=== PATIENT | male | born 1950 | race Caucasian/White ===

== ENCOUNTER 2016-07-06 15:48 | Emergency (ER) | payer BC ==
[2016-09-07] MEDS ORDERED: HYDROCHLOROTHIA25 MG PO (08:19)
[2016-09-07] MEDS ORDERED: ZANTAC150 MG PO (08:19)
[2016-09-07] MEDS ORDERED: COZAAR100 MG PO (08:19)
[2016-09-07] MEDS ORDERED: IBUPROFEN400 MG PO (08:20)
== END 2016-07-06 17:18 | disposition home or self-care (01) ==
LOC: ER1 15:48
DX: S61.210A Laceration without foreign body of right index finger without damage to nail, initial encounter (principal); I10 Essential (primary) hypertension; Z88.0 Allergy status to penicillin; Z23 Encounter for immunization; Z87.891 Personal history of nicotine dependence; W26.0XXA Contact with knife, initial encounter; Y92.009 Unspecified place in unspecified non-institutional (private) residence as the place of occurrence of the external cause
CPT/HCPCS: 12001; 90471; 90715; 99283

== ENCOUNTER → 2016-09-07 | Day surgery (SDC) | payer BC ==
[~2016-09-07] MED LIST: COZAAR100 MG PO; HYDROCHLOROTHIA25 MG PO; IBUPROFEN400 MG PO; ZANTAC150 MG PO
== END | disposition home or self-care (01) ==
LOC: OR 06:55
PROVIDERS: Surgery
PROC: 0DB38ZZ Excision of Lower Esophagus, Via Natural or Artificial Opening Endoscopic (ICD-10-PCS; 2016-09-07)
PROC: 0DB68ZX Excision of Stomach, Via Natural or Artificial Opening Endoscopic, Diagnostic (ICD-10-PCS; principal; 2016-09-07 08:00)
DX: K29.00 Acute gastritis without bleeding (principal); K29.50 Unspecified chronic gastritis without bleeding; K44.9 Diaphragmatic hernia without obstruction or gangrene; E78.5 Hyperlipidemia, unspecified; I10 Essential (primary) hypertension; K21.9 Gastro-esophageal reflux disease without esophagitis; M19.90 Unspecified osteoarthritis, unspecified site; Z88.1 Allergy status to other antibiotic agents; Z85.828 Personal history of other malignant neoplasm of skin
CPT/HCPCS: J7120

== ENCOUNTER 2020-07-12 18:29 | Emergency (ER) | payer BC, OTHER ==
[~2020-07-12 18:29] MED LIST changes: +ECOTRIN81 MG PO; +IMDUR ER TAB 3030 MG PO; +LOPRESSOR 25 MG25 MG PO; +VITAMIN D; +VITAMIN D350000 UNIT PO
[2020-07-12 20:56] LABS: HEMOGLOBIN 15.4 gm/dl (14.0-17.5); RED BLOOD COUNT 5.02 M/UL (4.20-5.50); WHITE BLOOD COUNT 10.3 K/UL (4.5-11.0)
[2020-07-12 21:13] LABS: BUN/CREATININE RATIO 25 (0-10)
== END 2020-07-12 22:00 | disposition home or self-care (01) ==
LOC: ER1 18:29
PROVIDERS: Family Medicine
DX: M54.2 Cervicalgia (principal); I10 Essential (primary) hypertension; Z79.01 Long term (current) use of anticoagulants; Z79.899 Other long term (current) drug therapy; Z88.0 Allergy status to penicillin
CPT/HCPCS: 80053; 82550; 82553; 83874; 84439; 84443; 84484; 85025; 93005; 99284

== ENCOUNTER → 2020-07-20 | Outpatient (CLI) | payer BC, OTHER | LOC: EXRD 08:41 | DX: I83.90 Asymptomatic varicose veins of unspecified lower extremity (principal) | CPT/HCPCS: 93971 ==

== ENCOUNTER → 2020-11-02 | Outpatient (CLI) | payer BC ==
[~2020-11-02] MED LIST changes: +CEPHALEXIN500 M1 PO
== END ==
LOC: HEART 5 10-29 13:30
DX: R00.0 Tachycardia, unspecified (principal)

== ENCOUNTER 2021-01-09 16:51 | Emergency (ER) | payer BC ==
[~2021-01-09 16:51] MED LIST changes: -CEPHALEXIN500 M1 PO
[2021-01-09] MEDS ORDERED: CEPHALEXIN500 M1 PO (17:37)
== END 2021-01-09 17:40 | disposition home or self-care (01) ==
LOC: ER1 16:51
DX: T23.201A Burn of second degree of right hand, unspecified site, initial encounter (principal); T31.0 Burns involving less than 10% of body surface; I10 Essential (primary) hypertension; Z88.8 Allergy status to other drugs, medicaments and biological substances
CPT/HCPCS: 99283

== ENCOUNTER → 2021-01-13 | Outpatient (CLI) | payer BC ==
[~2021-01-13] MED LIST changes: +CEPHALEXIN500 M1 PO
== END ==
LOC: HEART 5 13:07
DX: R00.2 Palpitations (principal)

== ENCOUNTER → 2021-03-24 | Outpatient (CLI) | payer BC ==
[2021-03-24 12:22] LABS: HEMOGLOBIN 14.8 gm/dl (14.0-17.5); RED BLOOD COUNT 4.84 M/UL (4.20-5.50); WHITE BLOOD COUNT 7.5 K/UL (4.5-11.0)
[2021-03-24 13:37] LABS: BUN/CREATININE RATIO 17 (0-10)
== END ==
LOC: LAB 11:55
PROVIDERS: Internal Medicine Cardiovascular Disease
DX: I42.9 Cardiomyopathy, unspecified (principal); I10 Essential (primary) hypertension; R00.2 Palpitations; I47.2 Ventricular tachycardia
CPT/HCPCS: 36415; 71046; 80048; 80061; 80076; 84439; 84443; 84481; 85025

== ENCOUNTER 2021-03-30 07:37 | Outpatient (CLI) | payer BC ==
[~2021-03-30] VITALS: Ht 175.3 cm; Wt 96.7 kg
[2021-03-30] MEDS ORDERED: CATAPRES 0.1MG0.1 MG PO (08:45)
[2021-03-30] MEDS ORDERED: ASPIRIN325 MG PO (08:45)
[2021-03-30] MEDS ORDERED: IBU400 MG PO (08:46)
[2021-03-30] MEDS ORDERED: LEVOFLOXACIN500 MG PO (14:35)
[2021-03-30] MEDS ORDERED: HYDROCODON-ACE1 EAC4 PO (14:35)
== END 2021-03-31 15:11 | disposition home or self-care (01) ==
LOC: CATH 07:37 → PROG CARE 15:20 → CATH 03-31 15:11
DX: I47.2 Ventricular tachycardia (principal); I49.5 Sick sinus syndrome; I42.8 Other cardiomyopathies; I10 Essential (primary) hypertension; Z88.8 Allergy status to other drugs, medicaments and biological substances; Z20.822 Contact with and (suspected) exposure to COVID-19
CPT/HCPCS: 71045; C1721; C1730; C1766; C1777; C1898; J1644; J2250; J2270; J3010; J3370; J7040; J7070; U0002

== ENCOUNTER → 2021-06-08 | Outpatient (CLI) | payer BC ==
[~2021-06-08] MED LIST changes: +ASPIRIN325 MG PO; +CATAPRES 0.1MG0.1 MG PO; +HYDROCODON-ACE1 EAC4 PO; +IBU400 MG PO; +LEVOFLOXACIN500 MG PO
== END ==
LOC: HEART 5 10:00
DX: I47.1 Supraventricular tachycardia (principal); I42.9 Cardiomyopathy, unspecified; R53.83 Other fatigue; R00.2 Palpitations; I10 Essential (primary) hypertension; I07.1 Rheumatic tricuspid insufficiency
CPT/HCPCS: 93306

== ENCOUNTER → 2021-07-16 | Outpatient (CLI) | payer MEDICARE ==
[~2021-07-16] MED LIST changes: +ASPIRIN81 MG PO; +CYCLOBENZAPRINE5 MG PO; +ELIQUIS5 MG PO; +IBU800 MG PO; +LOSARTAN POTASS50 MG PO; +METOPROLOL TART50 MG PO; +VOLTAREN ARTHRI20 GM TP
[2021-07-16 10:46] LABS: HEMOGLOBIN 12.7 gm/dl (14.0-17.5); RED BLOOD COUNT 4.25 M/UL (4.20-5.50); WHITE BLOOD COUNT 8.6 K/UL (4.5-11.0)
[2021-07-16 11:09] LABS: BUN/CREATININE RATIO 29 (0-10)
== END ==
LOC: OPSV2 09:30
PROVIDERS: Orthopaedic Surgery
DX: Z01.818 Encounter for other preprocedural examination (principal); S76.112A Strain of left quadriceps muscle, fascia and tendon, initial encounter
CPT/HCPCS: 80048; 83036; 85025; 93005

== ENCOUNTER → 2021-07-16 | Outpatient (CLI) | payer BC | LOC: KOH-I 07-06 15:00 | DX: Z87.891 Personal history of nicotine dependence (principal) | CPT/HCPCS: 71271 ==

== ENCOUNTER 2021-07-20 09:11 | Inpatient (IN) | payer MEDICARE ==
[~2021-07-20] VITALS: Ht 175.3 cm; Wt 102.1 kg
[2021-07-20 11:35] LABS: HEMOGLOBIN 13.2 gm/dl (14.0-17.5); RED BLOOD COUNT 4.45 M/UL (4.20-5.50); WHITE BLOOD COUNT 9.4 K/UL (4.5-11.0)
[2021-07-20 12:06] LABS: BUN/CREATININE RATIO 18 (0-10)
[2021-07-22 05:08] LABS: BUN/CREATININE RATIO 14 (0-10)
[2021-07-23 04:44] LABS: RED BLOOD COUNT 4.07 M/UL (4.20-5.50); WHITE BLOOD COUNT 8.2 K/UL (4.5-11.0)
[2021-07-23 05:01] LABS: BUN/CREATININE RATIO 18 (0-10)
[2021-07-25 04:42] LABS: BUN/CREATININE RATIO 22 (0-10)
[2021-07-27 04:58] LABS: BUN/CREATININE RATIO 18 (0-10)
[2021-07-29 03:41] LABS: HEMOGLOBIN 12.4 gm/dl (14.0-17.5); RED BLOOD COUNT 4.17 M/UL (4.20-5.50); WHITE BLOOD COUNT 11.2 K/UL (4.5-11.0)
[2021-07-29 05:52] LABS: BUN/CREATININE RATIO 17 (0-10)
[2021-07-30] MEDS ORDERED: VALIUM 5 MG TAB5 MG PO (09:49)
[2021-07-30] MEDS ORDERED: HYDROCODON-ACE1 EAC4 PO (09:49)
[2021-07-30 11:12] LABS: HEMOGLOBIN 13.3 gm/dl (14.0-17.5); RED BLOOD COUNT 4.54 M/UL (4.20-5.50); WHITE BLOOD COUNT 8.9 K/UL (4.5-11.0)
[2021-07-30 11:35] LABS: BUN/CREATININE RATIO 18 (0-10)
[2021-07-31 07:26] LABS: HEMOGLOBIN 12.5 gm/dl (14.0-17.5); RED BLOOD COUNT 4.33 M/UL (4.20-5.50); WHITE BLOOD COUNT 8.6 K/UL (4.5-11.0)
[2021-07-31 07:53] LABS: BUN/CREATININE RATIO 17 (0-10)
[2021-08-01 05:58] LABS: HEMOGLOBIN 13.1 gm/dl (14.0-17.5); RED BLOOD COUNT 4.46 M/UL (4.20-5.50); WHITE BLOOD COUNT 7.8 K/UL (4.5-11.0)
[2021-08-01 06:20] LABS: BUN/CREATININE RATIO 19 (0-10)
--- NOTE | 2021-08-02 09:02 | NUR ---
patient condition reported and order received from dr. wang white hat hacker
--- NOTE | 2021-08-03 05:52 | NUR ---
PATIENT WAS ADMINISTERED PAIN MEDICATION ORDERED, PT VOICED THAT HE "HAD PAIN ALL NIGHT". PATIENT WAS NOTED TO BE RESTING DURING HOURLY CHECKS WITH NO SIGNS OF DISTRESS NOTED FOLLOWING ADMINISTRATION OF VALIUM PER REQUEST AT 0016. PATIENT WAS ADMINISTERED PAIN MEDICATION, REPOSITIONED INTO THE WHEELCHAIR PER REQUEST AT 0520. CALL INFANTE WITHIN REACH.
--- NOTE | 2021-08-03 14:04 | NUR ---
REPORT TAKEN FROM JOSE ANGEL, I AGREE WITH PREVIOUS ASSESSMENT
--- NOTE | 2021-08-04 01:52 | NUR ---
Late Entry for 08/03/2021 at 2032. Patient was noted to be ambulating without assistance. Patient educated on fall prevention safety and verbalized understanding. Patient assisted back to bed without incident. Bed alarm on, call mcduffie within reach.
== END 2021-08-06 16:44 | DRG 501 ==
LOC: OR 09:11 → M/S 11:14 → OR 14:19 → M/S 07-22 12:57
PROVIDERS: Internal Medicine; Physician Assistant Medical; ADMIT Orthopaedic Surgery
PROC: 0LCM0ZZ Extirpation of Matter from Left Upper Leg Tendon, Open Approach (ICD-10-PCS; 2021-07-27)
PROC: 0LQM0ZZ Repair Left Upper Leg Tendon, Open Approach (ICD-10-PCS; principal; 2021-07-27 11:15)
DX: S76.112A Strain of left quadriceps muscle, fascia and tendon, initial encounter (principal); L03.116 Cellulitis of left lower limb; I42.8 Other cardiomyopathies; E87.1 Hypo-osmolality and hyponatremia; Z20.822 Contact with and (suspected) exposure to COVID-19; Z96.698 Presence of other orthopedic joint implants; G47.33 Obstructive sleep apnea (adult) (pediatric); K21.9 Gastro-esophageal reflux disease without esophagitis; I48.0 Paroxysmal atrial fibrillation; F12.10 Cannabis abuse, uncomplicated; E66.9 Obesity, unspecified; F41.9 Anxiety disorder, unspecified; I10 Essential (primary) hypertension; Y93.B9 Activity, other involving muscle strengthening exercises; Z79.01 Long term (current) use of anticoagulants; Z79.82 Long term (current) use of aspirin; Z82.0 Family history of epilepsy and other diseases of the nervous system; Z82.49 Family history of ischemic heart disease and other diseases of the circulatory system; Z85.89 Personal history of malignant neoplasm of other organs and systems; Z95.810 Presence of automatic (implantable) cardiac defibrillator; Z88.6 Allergy status to analgesic agent; Z88.1 Allergy status to other antibiotic agents; Z88.8 Allergy status to other drugs, medicaments and biological substances; Z85.828 Personal history of other malignant neoplasm of skin; Z68.33 Body mass index [BMI] 33.0-33.9, adult
CPT/HCPCS: 36415; 80048; 80053; 80202; 85018; 85025; 85027; 93971; 97110; 97110-GP-CQ; 97116; 97116-GP-CQ; 97161; 97165; 97530; 97530-GP-CQ; C1713; G0378; J0690; J0696; J1100; J1170; J2001; J2250; J2405; J2704; J2795; J3370; J7030; J7070; J7120; U0002

== ENCOUNTER → 2022-01-18 | Outpatient (CLI) | payer MEDICARE ==
[~2022-01-18] MED LIST changes: +BENTYL 20MG TAB20 MG PO; +VALIUM 5 MG TAB5 MG PO; +ZOFRAN 4 MG TAB4 MG PO
== END ==
LOC: KOH-I 11:24
DX: E04.1 Nontoxic single thyroid nodule (principal)
CPT/HCPCS: 76536

== ENCOUNTER 2022-01-21 02:26 | Emergency (ER) | payer MEDICARE ==
[~2022-01-21 02:26] MED LIST changes: -BENTYL 20MG TAB20 MG PO; -ZOFRAN 4 MG TAB4 MG PO
[2022-01-21 03:00] LABS: HEMOGLOBIN 14.4 gm/dl (14.0-17.5); RED BLOOD COUNT 4.97 M/UL (4.20-5.50); WHITE BLOOD COUNT 10.5 K/UL (4.5-11.0)
[2022-01-21 03:33] LABS: BUN/CREATININE RATIO 19 (0-10)
[2022-01-21] MEDS ORDERED: BENTYL 20MG TAB20 MG PO (05:06)
[2022-01-21] MEDS ORDERED: ZOFRAN 4 MG TAB4 MG PO (05:06)
== END 2022-01-21 05:30 | disposition home or self-care (01) ==
LOC: ER1 02:26
PROVIDERS: Student in an Organized Health Care Education/Training Program
DX: K80.80 Other cholelithiasis without obstruction (principal); K76.0 Fatty (change of) liver, not elsewhere classified; I48.91 Unspecified atrial fibrillation; I10 Essential (primary) hypertension; Z95.810 Presence of automatic (implantable) cardiac defibrillator; Z88.0 Allergy status to penicillin
CPT/HCPCS: 71045; 80053; 82550; 82553; 83690; 84484; 85025; 93005; 96374; 96375; 99284; J2270; J2405; Q9967